=== PATIENT | male | born 1950 | race Caucasian/White ===

== ENCOUNTER 2019-10-18 15:15 | Emergency (ER) | payer MEDICARE, BC ==
--- NOTE | 2019-10-18 16:57 | RAD ---
Exam:Right hip 2 views HISTORY: Trauma. Pain COMPARISON: None FINDINGS: Contour of the femoral head is maintained. Hip joint spaces preserved. No fracture. IMPRESSION: No fracture.
--- NOTE | 2019-10-18 17:00 | RAD ---
Exam: One view pelvis HISTORY: Trauma. Pain FINDINGS: Sacral alar are intact. Sacral joints are preserved. Intact bony pelvis. Contour of both fe moral heads are maintained. Symmetric hip joint spaces Obturator rings are intact IMPRESSION: No fracture
== END 2019-10-18 17:17 | disposition home or self-care (01) ==
LOC: ERS 15:15
DX: M54.42 Lumbago with sciatica, left side (principal); R73.03 Prediabetes; V43.92XA Unspecified car occupant injured in collision with other type car in traffic accident, initial encounter
CPT/HCPCS: 72170

== ENCOUNTER 2020-07-16 09:58 | Outpatient (CLI) | payer MEDICARE, BC ==
[2020-07-16 11:49] LABS: Hemoglobin 12.9 g/dL (13.5-17.5); Mean Corpuscular HGB CONC 34.6 g/dL (32.0-36.0); Mean Corpuscular Hemoglobin 31.1 pg (27.0-33.0); Mean Corpuscular Volume 89.9 fl (81.2-95.1); Platelet Count 169 10x3/uL (150-450); RBC Distribution Width 13.2 % (11.5-14.5); Red Blood Cell (RBC) Count 4.15 10x6/uL (4.32-5.72); White Blood Cell (WBC) Count 4.8 10x3/uL (3.5-10.5)
[2020-07-16 11:55] LABS: Anion Gap 12 mmol/L (10-20); BUN (Urea Nitrogen) 24 mg/dL (8.4-25.7); Calc. Creatinine Clearance 0 mL/min (70-130); Calcium 9.4 mg/dL (7.8-10.44); Carbon Dioxide 26 mmol/L (23-31); Chloride 105 mmol/L (98-107); Glucose 231 mg/dL (80-115); Sodium 139 mmol/L (136-145)
[2020-07-16 12:12] LABS: Bilirubin Neg (Negative); Blood, Urine Negative (Negative); Clarity Clear (Clear); Glucose, Urine (Dipstick) >=1000 mg/dL (Negative); Ketone, Urine Negative (Negative); Leukocyte Negative (Negative); Nitrite Negative (Negative); Protein, Urine (Dipstick) Negative (Neg-Trace); Urobilinogen Normal mg/dL (Less than 2)
[2020-07-16 12:18] LABS: INR-International Normal Ratio 1.1; PTT 26.7 sec (22.0-33.0); Prothrombin Time 11.3 sec (9.5-12.1)
[2020-07-16 12:40] LABS: Bacteria/HPF None Seen HPF (None Seen); RBC/HPF 0-3 HPF (0-3); Squamous Epithelial None Seen HPF (0-3); WBC/HPF None Seen HPF (0-3)
[2020-07-16 17:47] LABS: SARS-CoV-2 PCR by NAA Not Detected (NotDetected)
== END 2020-07-16 09:59 | disposition home or self-care (01) ==
LOC: LABBT 09:58
PROVIDERS: ATTEND Urology
DX: Z01.818 Encounter for other preprocedural examination (principal); Z20.822 Contact with and (suspected) exposure to COVID-19; C61 Malignant neoplasm of prostate; N39.3 Stress incontinence (female) (male); N52.31 Erectile dysfunction following radical prostatectomy; R30.0 Dysuria
CPT/HCPCS: 80048; 81001; 85027; 85610; 85730; 87086; 93005; U0003; U0005; 87635; 93010

== ENCOUNTER 2020-07-18 07:24 | Day surgery (SDC) | payer MEDICARE, BC ==
[2020-07-17 10:54] VITALS: BMI 30.5
[2020-07-18] MEDS ORDERED: Levofloxacin 500 mg/D5W 100 ml Premix Bag ONE (08:15)
[2020-07-18] MEDS ORDERED: B & O ONE (09:23)
[2020-07-18] MEDS ORDERED: Fentanyl 100 MCG/2 ML VIAL ONE (09:28)
[2020-07-18] MEDS ORDERED: Dexamethasone 20 MG/5 ML VIAL ONE (09:43)
[2020-07-18] MEDS ORDERED: ePHEDrine 50 MG/ML VIAL ONE (09:43)
[2020-07-18] MEDS ORDERED: Ondansetron PF 4 MG/2 ML Vial ONE (09:43)
[2020-07-18] MEDS ORDERED: PROPOFOL 200 MG/20 ML VIAL ONE (09:43)
== END 2020-07-18 12:21 | disposition home or self-care (01) ==
LOC: SDC 07:24
PROVIDERS: ATTEND Urology
PROC: 0T7D8ZZ Dilation of Urethra, Via Natural or Artificial Opening Endoscopic (ICD-10-PCS; principal; 2020-07-18)
DX: N35.813 Other membranous urethral stricture, male (principal); N39.3 Stress incontinence (female) (male); N52.31 Erectile dysfunction following radical prostatectomy; I10 Essential (primary) hypertension; E11.9 Type 2 diabetes mellitus without complications; E78.5 Hyperlipidemia, unspecified; M19.90 Unspecified osteoarthritis, unspecified site; Z79.82 Long term (current) use of aspirin; Z79.84 Long term (current) use of oral hypoglycemic drugs; Z79.899 Other long term (current) drug therapy; Z85.46 Personal history of malignant neoplasm of prostate; Z86.73 Personal history of transient ischemic attack (TIA), and cerebral infarction without residual deficits; Z96.653 Presence of artificial knee joint, bilateral
CPT/HCPCS: J1100; J1956; J2405; J2704; J3010; J3490

== ENCOUNTER 2021-11-09 08:27 | Emergency (ER) | payer MEDICARE, BC ==
[2021-11-09] MEDS ORDERED: traMADol HCl 50 MG TAB ONE (09:03)
== END 2021-11-09 09:17 | disposition home or self-care (01) ==
LOC: ERS 08:27
DX: K04.7 Periapical abscess without sinus (principal); K03.81 Cracked tooth
CPT/HCPCS: 99282

== ENCOUNTER 2022-08-13 09:27 | Emergency (ER) | payer MEDICARE, BC ==
[2022-08-13] MEDS ORDERED: Ketorolac Tromethamine 30 MG/ML VIAL ONE (10:17)
== END 2022-08-13 11:07 | disposition home or self-care (01) ==
LOC: ERS 09:27
DX: R51.9 Headache, unspecified (principal); M54.2 Cervicalgia; M25.561 Pain in right knee; E78.00 Pure hypercholesterolemia, unspecified; E11.9 Type 2 diabetes mellitus without complications; I10 Essential (primary) hypertension; W20.1XXA Struck by object due to collapse of building, initial encounter; Z85.46 Personal history of malignant neoplasm of prostate; Z79.82 Long term (current) use of aspirin; Z79.84 Long term (current) use of oral hypoglycemic drugs; Z79.899 Other long term (current) drug therapy
CPT/HCPCS: 70450; 72125; 96372; J1885

== ENCOUNTER 2023-05-21 09:11 | Emergency (ER) | payer MEDICARE, BC ==
[2023-05-21 09:51] LABS: #Basophils 0.1 thou/uL (0.0-0.2); #Eosinphils 0.3 thou/uL (0.0-0.7); #Monocytes 0.5 thou/uL (0.11-0.59); #Neutrophils 4.2 thou/uL (1.40-6.50); %Basophils 1.1 % (0.0-1.0); %Eosinophils 4.7 % (0.0-10.0); %Lymphocytes 20.4 % (21.0-51.0); %Monocytes 7.3 % (0.0-10.0); %Neutrophils 66.3 % (42.0-75.0); Hematocrit 40.6 % (42.0-52.0); Hemoglobin 14.3 g/dL (14.0-18.0); Mean Corpuscular HGB CONC 35.2 g/dL (32.0-36.0); Mean Corpuscular Volume 87.9 fl (78.0-98.0); Mean Platelet Volume 9.7 fL (7.4-10.4); Platelet Count 196 10x3/uL (130-400); RBC Distribution Width 12.7 % (11.5-14.5); Red Blood Cell (RBC) Count 4.62 mill/uL (4.70-6.10); White Blood Cell (WBC) Count 6.3 10x3/uL (4.8-10.8)
[2023-05-21 10:20] LABS: ALT (SGPT) 28 U/L (8-55); AST (SGOT) 17 U/L (5-34); Albumin 4.2 g/dL (3.4-4.8); Alkaline Phosphatase 77 U/L (40-110); Anion Gap 15 mmol/L (10-20); BUN (Urea Nitrogen) 17 mg/dL (8.4-25.7); Bilirubin, Total 1.2 mg/dL (0.2-1.2); Calc. Creatinine Clearance 0 mL/min (70-130); Calcium 9.2 mg/dL (7.8-10.44); Carbon Dioxide 23 mmol/L (23-31); Chloride 100 mmol/L (98-107); Estimated GFR 83; Potassium 3.7 mmol/L (3.5-5.1); Protein, Total 7.2 g/dL (5.8-8.1); Sodium 134 mmol/L (136-145)
[2023-05-21 10:25] LABS: Bacteria/HPF None Seen HPF (None Seen); Bilirubin Negative (Negative); Blood, Urine 2+ (Negative); CAUTI Indications for Culture Dysuria,urgency,freq; Clarity Turbid (Clear); Glucose, Urine (Dipstick) Greater than 1000 mg/dL (Negative); Ketone, Urine Trace mg/dL (Negative); Leukocyte 250 Leu/uL (Negative); Nitrite Negative (Negative); Protein, Urine (Dipstick) 70 mg/dL (Neg-Trace); Specific Gravity, Urine 1.033 (1.002-1.036); Squamous Epithelial 0-3 HPF (0-3); Urobilinogen Normal mg/dL (Less than 2); WBC/HPF Greater than 50 HPF (0-3); pH, Urine 5.5 (5.0-9.0)
[2023-05-21 10:27] LABS: Critical Call Chemistry NUR.JAJ @1027; Glucose 411 mg/dL (83-110)
[2023-05-21 10:30] LABS: Urine Culture Reflex Yes Yes
== END 2023-05-21 10:49 | disposition home or self-care (01) ==
LOC: ERS 09:11
DX: N39.0 Urinary tract infection, site not specified (principal); N30.01 Acute cystitis with hematuria; E11.9 Type 2 diabetes mellitus without complications; I10 Essential (primary) hypertension; E78.5 Hyperlipidemia, unspecified; Z79.84 Long term (current) use of oral hypoglycemic drugs; Z79.899 Other long term (current) drug therapy
CPT/HCPCS: 36415; 80053; 81001; 85025; 87077; 87086; 87186; 99283

== ENCOUNTER 2024-03-09 13:15 | Outpatient (CLI) | payer MEDICARE, BC | END 2024-03-09 13:16 | disposition home or self-care (01) | LOC: MRI 13:15 | PROVIDERS: ATTEND Family Medicine | DX: R25.1 Tremor, unspecified (principal); I73.89 Other specified peripheral vascular diseases | CPT/HCPCS: 70551 ==

== ENCOUNTER 2024-05-17 09:41 | Outpatient (CLI) | payer MEDICARE, BC | END 2024-05-17 09:42 | disposition home or self-care (01) | LOC: BICMRI 09:41 | PROVIDERS: ATTEND Family Medicine | DX: M47.26 Other spondylosis with radiculopathy, lumbar region (principal); M48.061 Spinal stenosis, lumbar region without neurogenic claudication; N28.89 Other specified disorders of kidney and ureter | CPT/HCPCS: 72148 ==

== ENCOUNTER 2024-06-04 11:58 | Outpatient (CLI) | payer MEDICARE, BC | END 2024-06-04 11:59 | disposition home or self-care (01) | LOC: ULT 11:58 | PROVIDERS: ATTEND Family Medicine | DX: N28.1 Cyst of kidney, acquired (principal) | CPT/HCPCS: 76770 ==

== ENCOUNTER 2024-12-13 13:00 | Outpatient (CLI) | payer MEDICARE, BC | END 2024-12-13 13:01 | disposition home or self-care (01) | LOC: BICRAD 13:00 | PROVIDERS: ATTEND Family Medicine | DX: R09.89 Other specified symptoms and signs involving the circulatory and respiratory systems (principal); E11.65 Type 2 diabetes mellitus with hyperglycemia; R60.0 Localized edema; J06.9 Acute upper respiratory infection, unspecified | CPT/HCPCS: 36415; 71046; 80053; 83036; 83880; 87635 ==